=== PATIENT | female | born 1995 | race Caucasian/White ===

== ENCOUNTER → 2017-01-10 17:30 | Emergency (ER) | payer OTHER ==
--- NOTE | 2017-01-10 18:55 | ED ---
Substance Abuse/Use - HPI Summary HPI Summary: Patient presents to the ED with CC of ETOH use. She states she drank approximately 2 drinks today, but friend who is with her states it was over 1 bottle of wine. She states she drinks often. Denies HI/SI. Denies self harm. Denies drug use. She denies SOB, chest pain, abdominal pain, urinary symptoms , MARTINEZ. She is tearful on exam. Denies fevers, sweats and chills. Mother and friend are at bedside. - History Of Current Complaint Chief Complaint: EDSubstanceAbuse Stated Complaint: ETOH Time Seen by Provider: 01/10/17 17:46 Hx Obtained From: Patient ?: No Onset/Duration of Drug/ETOH Abuse: Minutes Ingestion History: Amount Ingested Overdose Characteristics: Oral Timing Of Abuse: Intermittent Severity Initially: Moderate Severity Currently: Moderate Character: Other Aggravating Factor(s): Nothing Alleviating Factor(s): Nothing Associated Signs And Symptoms: Intentional Ingestion - Allergies/Home Medications Allergies/Adverse Reactions: Allergies Allergy/AdvReac Type Severity Reaction Status Date / Time No Known Allergies Allergy Unverified 12/22/13 15:37 PMH/Surg Hx/FS Hx/Imm Hx Previously Healthy: Yes - Immunization History Hx Pertussis Vaccination: No Immunizations Up to Date: Unable to Obtain/Confirm Infectious Disease History: No Infectious Disease History: Denies: Traveled Outside the [place] in Last 30 Days - Family History Family History: A family Hx is unable to be obtained, because the patient has an altered mental status. - Social History Occupation: Employed Part-time Lives: With Family Alcohol Use: Weekly Alcohol Amount: once a week Hx Substance Use: No Substance Use Type: Reports: None Hx Tobacco Use: No Smoking Status (MU): Never Smoked Tobacco Review of Systems Constitutional: Negative Negative: Fever, Chills, Fatigue Eyes: Negative Cardiovascular: Negative Respiratory: Negative Gastrointestinal: Negative Negative: Abdominal Pain, Vomiting, Nausea Genitourinary: Negative Positive: no symptoms reported, see HPI Negative: Arthralgia, Myalgia Skin: Negative Neurological: Negative Positive: Other - tearful All Other Systems Reviewed And Are Negative: Yes Physical Exam Triage Information Reviewed: Yes Vital Signs On Initial Exam: Initial Vitals Temp Pulse Resp BP Pulse Ox 97 F 100 16 120/72 99 01/10/17 17:45 01/10/17 17:45 01/10/17 17:45 01/10/17 17:45 01/10/17 17:45 Vital Signs Reviewed: Yes Appearance: Positive: Well-Appearing, Well-Nourished Skin: Positive: Warm, Skin Color Reflects Adequate Perfusion Eyes: Positive: Normal, GUILLE Neck: Positive: Supple, No Lymphadenopathy Respiratory/Lung Sounds: Positive: Clear to Auscultation, Breath Sounds Present Cardiovascular: Positive: Normal, RRR Musculoskeletal: Positive: Normal, Strength/ROM Intact Neurological: Positive: Speech Normal Psychiatric: Positive: Affect/Mood Appropriate - tearful on exam - [place] Coma Scale Coma Scale Total: 15 Diagnostics - Vital Signs Vital Signs Temp Pulse Resp BP Pulse Ox 01/10/17 17:45 97 F 100 16 120/72 99 - Laboratory Lab Statement: Any lab studies that have been ordered have been reviewed, and results considered in the medical decision making process. Course/Dx - Course Course Of Treatment: Evaluted for ETOH use. Denies any pain, falls, abdominal pain, N/V/C/D, hitting head or LOC. Over 1 bottle of wine per friend and grain merchandiser. She is discharged with a safe ride home. VS stable. - Diagnoses Differential Diagnosis/HQI/PQRI: Positive: Alcohol Abuse, Alcohol Withdrawal Provider Diagnoses: Alcohol use Discharge - Discharge Plan Condition: Stable Disposition: HOME Patient Education Materials: Abuse of Alcohol (ED) Referrals: Raquel Arndt MD [Primary Care Provider] - Additional Instructions: Please drink plenty of fluids today Ibuprofen 600mg if you begin to have a headache
[2017-01-10 19:03] VITALS: BP 100/67
== END | disposition home or self-care (01) ==
LOC: ED 17:30
DX: F10.929 Alcohol use, unspecified with intoxication, unspecified (principal)
CPT/HCPCS: 99282